=== PATIENT | male | born 1945 | race Caucasian/White ===

== ENCOUNTER → 2016-07-21 | Outpatient (CLI) | payer OTHER ==
[~2016-07-21] MED LIST: COUMADIN 5 MG TA5 M1 PO; FLOMAX PO; NORCO 5-325 TA1 EACH PO; PERCOCET 5-3251 EACH; SYNTHROID75 MCG PO; TRICOR145 MG PO; ZOCOR40 MG PO
[2016-07-21 08:12] LABS: CREATININE 1.3 mg/dL (0.7-1.3)
== END ==
LOC: CAT 07:40
PROVIDERS: Internal Medicine Cardiovascular Disease
DX: I77.810 Thoracic aortic ectasia (principal); N28.1 Cyst of kidney, acquired; K57.32 Diverticulitis of large intestine without perforation or abscess without bleeding